=== PATIENT | female | born 1990 | race African-American/Black ===

== ENCOUNTER 2018-05-05 08:30 | Emergency (ER) | payer BC, MEDICAID ==
[~2018-05-05] VITALS: Ht 165.1 cm; Wt 88.9 kg
[~2018-05-05 08:30] MED LIST: CELEXA
[2018-05-05 08:36] VITALS: BP 143/99
== END 2018-05-05 10:20 | disposition home or self-care (01) ==
LOC: ER 08:30
DX: J03.90 Acute tonsillitis, unspecified (principal)

== ENCOUNTER 2019-03-27 21:57 | Emergency (ER) | payer BC ==
[~2019-03-27] VITALS: Ht 165.1 cm; Wt 90.7 kg
[2019-03-27 22:12] VITALS: BP 169/98
== END 2019-03-27 23:10 | disposition left against medical advice (07) ==
LOC: ER 22:02
DX: I10 Essential (primary) hypertension (principal); R51 Headache; Z53.21 Procedure and treatment not carried out due to patient leaving prior to being seen by health care provider

== ENCOUNTER 2020-09-12 09:10 | Emergency (ER) | payer BC, OTHER ==
[~2020-09-12] VITALS: Ht 165.1 cm; Wt 75.3 kg
[2020-09-12 10:07] VITALS: BP 149/105
== END 2020-09-12 10:33 | disposition home or self-care (01) ==
LOC: ER 09:10
DX: U07.1 COVID-19 (principal); I10 Essential (primary) hypertension; Z53.21 Procedure and treatment not carried out due to patient leaving prior to being seen by health care provider

== ENCOUNTER 2021-06-05 13:52 | Emergency (ER) | payer SELFPAY ==
[~2021-06-05] VITALS: Ht 175.3 cm; Wt 72.6 kg
[2021-06-05 14:05] VITALS: BP 166/83
[2021-06-05 15:13] LABS: Basophils # (auto) 0.1 10 ^3/uL (0-0.2); Basophils % (auto) 0.3 % (0.0-2.0); Eosinophils # (auto) 0 10 ^3/uL (0-0.8); Eosinophils % (auto) 0.2 % (0.0-7.0); Hematocrit 39.4 % (36.0-46.0); Hemoglobin 12.6 g/dL (12.2-16.2); Lymphocytes # (auto) 2.9 10 ^3/uL (0.4-5.4); Lymphocytes % (auto) 18.3 % (10.0-50.0); Mean Corpuscular Hemoglobin 27.7 pg (28.0-32.0); Mean Corpuscular Volume 86.7 fL (80.0-100.0); Monocytes # (auto) 0.8 10 ^3/uL (0-1.3); Monocytes % (auto) 4.9 % (0.0-12.0); Neutrophils # (auto) 12.3 10 ^3/uL (1.6-8.6); Neutrophils % (auto) 76.3 % (37.0-80.0); Nucleated Red Blood Cells % 0.2 %; Red Blood Cells 4.55 10^6/uL (4.0-5.20); Red Cell Distribution Width 13.1 % (11.8-14.3); White Blood Cell 16.1 10^3/uL (4.4-10.8)
[2021-06-05 15:17] LABS: Alanine Aminotransferase 18 U/L (13-56); Albumin 4.1 g/dL (3.4-5.0); Anion Gap 10 (5-15); Blood Urea Nitrogen 10 mg/dL (7-18); Calcium 8.9 mg/dL (8.5-10.1); Carbon Dioxide 24 mmol/L (21-32); Chloride 104 mmol/L (98-107); Glucose 171 mg/dL (74-106); Sodium 138 mmol/L (136-145)
[2021-06-05 15:21] LABS: Alkaline Phosphatase 57 U/L (45-117); Aspartate Aminotransferase 10 U/L (15-37); BUN/Creatinine Ratio 11.9; Bilirubin, Total 0.8 mg/dL (0.2-1.0); GFR African American 101 mL/min; GFR Non-African American 84 mL/min; Total Protein 8.4 g/dL (6.4-8.2)
[2021-06-05 15:44] LABS: Potassium 2.6 mmol/L (3.5-5.1)
== END 2021-06-05 16:22 | disposition left against medical advice (07) ==
LOC: EDBD 13:52 → ER 13:52
DX: R07.89 Other chest pain (principal); R10.13 Epigastric pain; R00.0 Tachycardia, unspecified; Z53.21 Procedure and treatment not carried out due to patient leaving prior to being seen by health care provider
CPT/HCPCS: 36415; 80053; 84484; 85025; 93005